=== PATIENT | male | born 1990 | race Caucasian/White ===

== ENCOUNTER 2017-07-18 15:13 | Emergency (ER) | payer OTHER ==
[~2017-07-18] VITALS: Ht 182.9 cm; Wt 74.8 kg
--- NOTE | 2017-07-18 15:16 | NUR ---
CALLED THE PATIENT FOR TRIAGE, PATIENT IS NOT IN THE WAITING ROOM.
[2017-07-18 15:20] VITALS: BP 146/80
== END 2017-07-18 18:50 | disposition home or self-care (01) ==
LOC: ER 15:19
DX: R60.0 Localized edema (principal); I87.2 Venous insufficiency (chronic) (peripheral); F11.10 Opioid abuse, uncomplicated
CPT/HCPCS: 93970; 99284; A4606; Z7610